=== PATIENT | female | born 1960 | race Caucasian/White ===

== ENCOUNTER 2018-11-16 10:26 | Day surgery (SDC) | payer BC ==
[2018-11-09 12:40] VITALS: BMI 23.0
[2018-11-16] MEDS ORDERED: PROPOFOL 20 ML ONE ×2 (10:51)
[2018-11-16 12:51] VITALS: TEMP 98.1
[2018-11-16 13:01] VITALS: BP 110/66; PULSE 881
== END 2018-11-16 13:00 | disposition home or self-care (01) ==
LOC: FASU-ENDO 10:26
PROVIDERS: ATTEND Internal Medicine Gastroenterology
PROC: 0DJD8ZZ Inspection of Lower Intestinal Tract, Via Natural or Artificial Opening Endoscopic (ICD-10-PCS; principal; 2018-11-16 12:11)
DX: Z12.11 Encounter for screening for malignant neoplasm of colon (principal)